=== PATIENT | female | born 1950 | race Caucasian/White ===

== ENCOUNTER → 2018-08-22 11:16 | Outpatient (CLI) | payer OTHER | END | disposition home or self-care (01) | LOC: D.RAD 11:15 | DX: M79.672 Pain in left foot (principal); M54.5 Low back pain ==

== ENCOUNTER → 2020-01-20 12:38 | Outpatient (CLI) | payer OTHER | END | disposition home or self-care (01) | LOC: D.MRI 12:38 | PROVIDERS: ATTEND Clinical Nurse Specialist Family Health | DX: M54.41 Lumbago with sciatica, right side (principal) ==